=== PATIENT | male | born 1970 | race Caucasian/White ===

== ENCOUNTER → 2016-09-03 | Outpatient (CLI) | payer BC ==
[~2016-09-03] MED LIST: DOXY100C2 PO; HYDR-3812 PO; PARO-49 PO
== END ==
LOC: LABNPT 15:22 → EDBD 15:22
PROVIDERS: ATTEND Otolaryngology Otolaryngology/Facial Plastic Surgery
DX: R22.1 Localized swelling, mass and lump, neck (principal)
CPT/HCPCS: 87070; 87205; 88305; 88312

== ENCOUNTER 2016-09-21 12:03 | Outpatient (CLI) | payer BC ==
[~2016-09-21] VITALS: Ht 180.3 cm; Wt 114.9 kg
[2016-09-21] MEDS ORDERED: PARO-49 PO (12:13)
[2016-09-21 12:17] VITALS: BP 137/93
[2016-09-21 12:57] LABS: BASOPHILS # (AUTO) 0.1 10^3/uL (0.0-0.1); BASOPHILS % (AUTO) 1 % (0-10); EOSINOPHILS # (AUTO) 0.1 10^3/uL (0.0-0.3); EOSINOPHILS % (AUTO) 3 % (0-10); LYMPHOCYTES % (AUTO) 39 % (12-44); MEAN CORPUSCULAR HEMOGLOBIN 29 PG (25-34); MEAN CORPUSCULAR HGB CONC 33 G/DL (32-36); MEAN CORPUSCULAR VOLUME 86 FL (80-99); MEAN PLATELET VOLUME 11.4 FL (7.4-10.4); MONOCYTES # (AUTO) 0.6 X 10^3 (0.0-1.0); MONOCYTES % (AUTO) 12 % (0-12); NEUTROPHILS # (AUTO) 2.2 X 10^3 (1.8-7.8); NEUTROPHILS % (AUTO) 45 % (42-75); PLATELET COUNT 251 10^3/uL (130-400); RED BLOOD COUNT 5.24 10^6/uL (4.35-5.85); RED CELL DISTRIBUTION WIDTH 13.5 % (10.0-14.5)
[2016-09-21 13:15] LABS: ANION GAP 7 MMOL/L (5-14); BLOOD UREA NITROGEN 16 MG/DL (7-18); BUN/CREATININE RATIO 15; CARBON DIOXIDE 27 MMOL/L (21-32); CHLORIDE 105 MMOL/L (98-107); CREATININE SERUM 1.07 MG/DL (0.60-1.30); GFR ESTIMATED > 60; GLUCOSE 87 MG/DL (70-105); POTASSIUM 4.5 MMOL/L (3.6-5.0); SODIUM 139 MMOL/L (135-145)
[2016-09-22] MEDS ORDERED: DOXY100C2 PO (10:32)
[2016-09-22] MEDS ORDERED: HYDR-3812 PO (10:32)
== END 2016-09-21 14:03 | disposition home or self-care (01) ==
LOC: PREOP 12:03
PROVIDERS: ATTEND Otolaryngology Otolaryngology/Facial Plastic Surgery
DX: Z01.810 Encounter for preprocedural cardiovascular examination (principal); Z01.812 Encounter for preprocedural laboratory examination; Z11.2 Encounter for screening for other bacterial diseases; R22.1 Localized swelling, mass and lump, neck
CPT/HCPCS: 36415; 80048; 85025; 87081; 93005

== ENCOUNTER 2016-09-22 07:05 | Day surgery (SDC) | payer BC ==
[~2016-09-22] VITALS: Ht 180.3 cm; Wt 114.9 kg
[~2016-09-22 07:05] MED LIST changes: -DOXY100C2 PO; -HYDR-3812 PO
[2016-09-22] MEDS: LACTATED RINGERS 1,000 ML IV PRN ×2 (07:20→09:15)
[2016-09-22 07:51] VITALS: BP 147/93
[2016-09-22] MEDS ORDERED: LIDOCAINE/EPI 1%-1:100,000 (XYLOCAINE) 20ML ONE (08:03)
[2016-09-22] MEDS ORDERED: MUPIROCIN 2% OINT 22 GM (BACTROBAN) TUBE ONE (08:04)
[2016-09-22] MEDS ORDERED: SEVOFLURANE (ULTANE) 15 ML INHAL SOLN ONE ×4 (08:17→09:16)
[2016-09-22] MEDS ORDERED: fentaNYL INJECTION 100 MCG/2 ML AMP ONE (08:17)
[2016-09-22] MEDS ORDERED: ATRACURIUM 50 MG/5 ML (TRACRIUM) IV ONE (08:17)
[2016-09-22] MEDS ORDERED: LIDOCAINE PF 2% 10 ML (XYLOCAINE) AMP ONE (08:17)
[2016-09-22] MEDS ORDERED: proPOfol 200 MG/20 ML (DIPRIVAN) VIAL IV ONE (08:17)
[2016-09-22] MEDS ORDERED: DEXAMETHASONE PF 10 MG/ML (DECADRON) VIAL ONE (08:17)
[2016-09-22] MEDS ORDERED: LACTATED RINGERS 1,000 ML IV ONE ×2 (08:17→09:16)
[2016-09-22] MEDS ORDERED: HURRICAINE EXT TUBE (BENZOCAINE) ONE (08:17)
[2016-09-22] MEDS ORDERED: MIDAZOLAM 2 MG/2 ML (VERSED) VIAL ONE (08:17)
--- NOTE | 2016-09-22 08:21 | Progress Note-Pre Operative ---
Pre-Operative Progress Note H&P Reviewed The H&P was reviewed, patient examined and no changes noted. Date H&P Reviewed: Sep 22, 2016 Time H&P Reviewed: 08:00 Pre-Operative Diagnosis: Low Midline neck mass NIA JHA MD Sep 22, 2016 8:21 am
[2016-09-22] MEDS ORDERED: CLINDAMYCIN 900 MG/50 ML IVPB 50 ML IV ONE (09:19)
--- NOTE | 2016-09-22 09:25 | Progress Note-Post Operative ---
Post-Operative Progess Note Pre-Operative Diagnosis Low Midline neck mass Post-Operative Diagnosis same-path pending Post-Op Procedure Note Date of Procedure: Sep 22, 2016 Name of Procedure: Excison of Low Midline Neck Mass Anesthesia Type get Estimated blood loss (mL): minimal Specimen(s) collected midlien neck xuji-bkqjcy-qnnpqion abscess aerobic andanaerobic cultures sent to lab NIA JHA MD Sep 22, 2016 9:25 am
[2016-09-22] MEDS ORDERED: ACETAMINOPHEN 325 MG TABLET/CAPLET (TYLENOL) PO PRN (09:30)
[2016-09-22] MEDS ORDERED: HYDROcodone/APAP 5 MG/325 MG (LORTAB) TAB PO PRN (09:30)
[2016-09-22] MEDS ORDERED: ONDANSETRON 4 MG/2 ML (SDV) Z0FRAN IV PRN (09:45)
[2016-09-22] MEDS: morphine INJ 10 MG/ML 1ML (SYR OR VIAL) IV PRN ×2 (09:45→09:49)
[2016-09-22] MEDS ORDERED: PROMETHAZINE INJ 25 MG/ML (PHENERGAN) AMP IV PRN (09:45)
[2016-09-22] MEDS ORDERED: fentaNYL INJECTION 100 MCG/2 ML AMP IV PRN (09:45)
[2016-09-22] MEDS ORDERED: MEPERIDINE (DEMEROL) INJ 50 MG/ML ONE (09:52)
--- NOTE | 2016-09-22 09:55 | Anesthesia-General Post-Op ---
General Patient Condition Mental Status/LOC: Same as Preop Cardiovascular: Satisfactory Nausea/Vomiting: Absent Respiratory: Satisfactory Pain: Controlled Complications: Absent Post Op Complications Complications None Follow Up Care/Instructions Patient Instructions None needed. Anesthesia/Patient Condition Patient Condition Patient is doing well, no complaints, stable vital signs, no apparent adverse anesthesia problems. No complications reported per nursing. D/C home per [facility] Criteria: OLE Rai DO Sep 22, 2016 09:55
[2016-09-22] MEDS: MEPERIDINE (DEMEROL) INJ 50 MG/ML IV PRN ×2 (09:56→09:58)
[2016-09-22 10:25] VITALS: BP 133/82
[2016-09-22] MEDS ORDERED: DOXY100C2 PO (10:32)
[2016-09-22] MEDS ORDERED: HYDR-3812 PO (10:32)
[2016-09-22 11:00] VITALS: BP 134/81
[2016-09-22 11:20] VITALS: BP_SYST 133; BP_SYST 134; BP_DIAS 81; BP_DIAS 82
--- OUTSIDE RECORDS SUMMARY | 2016-09-25 08:28 | XMS REPORT | Continuity of Care Document ---
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 Visit Date/Time Discharge Status Pt. Type Provider Facility Loc./Unit Complaint [id number] 09/24/2014 09:02:00 09/24/2014 23: 59:59 CLS Outpatient NOBLE WHITE APRN
== END 2016-09-22 11:20 | disposition home or self-care (01) ==
LOC: DELPENDDIS → SDC 07:05
PROVIDERS: ATTEND Otolaryngology Otolaryngology/Facial Plastic Surgery
DX: L92.1 Necrobiosis lipoidica, not elsewhere classified (principal)
CPT/HCPCS: 87070; 87075; 87205; 88307; 88312; 88331; 88342

== ENCOUNTER 2022-07-12 16:52 | Emergency (ER) | payer BC ==
--- NOTE | 2022-07-12 17:05 | ED Chest Pain ---
General Chief Complaint: Chest Pain Stated Complaint: CHEST PAIN Nursing Triage Note: PT AMB TO RM 3 WITH WITH C/O CP SINCE LAST NIGHT THAT FEELS TIGHT AND PT ALSO STATES HE HAS HEART BURN. PT SEEN AT PCP AND REC'D EKG AND BLOOD WORK TODAY Source: patient, family Exam Limitations: no limitations (ANN MARIE GONGORA APRN) History of Present Illness Date Seen by Provider: Jul 12, 2022 Time Seen by Provider: 17:00 Initial Comments Patient is a 51-year-old male who presents to the emergency department for evaluation of chest pain that has been present since last night. Patient states he has some very mild chest tightness and feels like he may have some heartburn. Patient was seen at PCP earlier today where an EKG and blood work was obtained. Patient presents to the ER for further evaluation as his symptoms have not resolved. Patient denies any shortness of breath. There is no worsening of the symptoms with exertion. Patient denies any diaphoresis or lower extremity edema. Patient denies any history of significant heart or lung issues in the past. (ANN MARIE GONGORA APRN) Allergies and Home Medications Allergies Coded Allergies: No Known Drug Allergies (Unverified , 09/21/16) Patient Home Medication List Home Medication List Reviewed: Yes (ANN MARIE GONGORA APRN) Doxycycline Hyclate (Doxycycline Hyclate) 100 Mg Capsule, 100 MG PO BID Prescribed by: MARVIN KHALIL on 09/22/16 1032 Hydrocodone Bit/Acetaminophen (Lortab 5 Mg Tablet) 1 Each Tablet, 1-2 TAB PO Q4H PRN for PAIN Prescribed by: MARVIN KHALIL on 09/22/16 1032 Paroxetine HCl (Paxil) 20 Mg Tablet, 20 MG PO DAILY, (Reported) Entered as Reported by: LESLYE BAER on 09/21/16 1213 Review of Systems Review of Systems Constitutional: no symptoms reported EENTM: No Symptoms Reported Respiratory: No Symptoms Reported Cardiovascular: See HPI, Chest Pain Gastrointestinal: No Symptoms Reported Genitourinary: No Symptoms Reported Musculoskeletal: no symptoms reported Skin: no symptoms reported Psychiatric/Neurological: No Symptoms Reported Endocrine: No Symptoms Reported Hematologic/Lymphatic: No Symptoms Reported (ANN MARIE GONGORA APRN) Past Oohdvmb-Bdabuq-Nhkhjv Hx Seasonal Allergies Seasonal Allergies: Yes (ANN MARIE GONGORA APRN) Past Medical History Reproductive Disorders: No Sexually Transmitted Disease: No HIV/AIDS: No Gastroesophageal Reflux Loss of Vision: Right Hearing Impairment: Denies Anxiety Adverse Reaction/Blood Tranf: No (N/A) (ANN MARIE GONGORA APRN) Physical Exam Vital Signs Vital Signs - First Documented 07/12/22 07/12/22 16:59 19:12 Temp 36.5 Pulse 69 Resp 14 B/P (MAP) 132/82 (99) Pulse Ox 99 O2 Delivery Room Air (MARY ANN NIETO DO) Vital Signs Capillary Refill : (ANN MARIE GONGORA APRN) Height, Weight, BMI Height: 5'11.00" Weight: 253lbs. 6.0oz. 114.642355wd; BMI Method: General Appearance: No Apparent Distress, WD/WN HEENT: PERRL/EOMI, TMs Normal, Normal ENT Inspection, Pharynx Normal Neck: Full Range of Motion, Normal Inspection, Non Tender, Supple Respiratory: Chest Non Tender, Lungs Clear, Normal Breath Sounds, No Accessory Muscle Use, No Respiratory Distress Cardiovascular: Regular Rate, Rhythm Gastrointestinal: Non Tender, Soft Neurologic/Psychiatric: Alert, Oriented x3, No Motor/Sensory Deficits, Normal Mood/Affect Skin: Normal Color, Warm/Dry (ANN MARIE GONGORA APRN) Progress/Results/Core Measures Results/Orders Lab Results Laboratory Tests Test 07/12/22 17:05 Range/Units Prothrombin Time 13.3 12.2-14.7 SEC INR Comment 1.0 0.8-1.4 Activated Partial Thromboplast Time 30 24-35 SEC Magnesium Level 2.3 1.6-2.4 MG/DL Myoglobin 66.5 10.0-92.0 NG/ML Troponin I < 0.028 <0.028 NG/ML (GERSON,MARY ANN K DO) My Orders Orders - GERSONMARY ANN K DO Ekg Tracing (07/12/22 16:58) (MARY ANN NIETO K DO) Vital Signs/I&O 07/12/22 07/12/22 16:59 19:12 Temp 36.5 Pulse 69 70 Resp 14 16 B/P (MAP) 132/82 (99) 135/72 Pulse Ox 99 O2 Delivery Room Air (GERSONMARY ANN K DO) Blood Pressure Mean: 99 Progress Progress Note : Progress Note Patient is nontoxic and well-hydrated on exam. No adventitious lung sounds or increased work of breathing noted. Abdominal exam is reassuring. Vital signs are reassuring without tachycardia, hypotension, or hypoxia. Patient states the pain is in his left chest and is tight in nature. He rates the pain at 1 out of 10 at this time. Chest pain work-up ordered including magnesium, coagulation studies, EKG, and troponin. I reviewed the laboratory studies obtained earlier today. The CBC and CMP from earlier are unremarkable. The D-dimer was not elevated. The chest x-ray from earlier today was acutely negative. The labs obtained today are all reassuring. Troponin is not elevated. EKG without acute ischemic change or arrhythmia. No need for repeat troponin as symptoms been present since last night. Feel like ACS is unlikely etiology of the patient's symptoms. Discussed supportive care and anticipatory guidance. Follow-up with PCP closely. Return precautions for urgent symptomology discussed. Patient and verbalized understanding. (ANN MARIE GONGORA APRN) EKG : EKG Time: 17:04 Rate: 74 Rhythm: Normal Sinus Intervals: Normal ECG Comparisson: No Previous ECG Available ECG Impression: Normal (ANN MARIE GONGORA APRN) Departure Impression Primary Impression: Atypical chest pain Disposition: 01 HOME, SELF-CARE Condition: Stable Departure-Patient Inst. Decision time for Depature: 18:40 (ANN MARIE GONGORA APRN) Referrals: JENELLE AYALA APRN (PCP/Family) Primary Care Physician Patient Instructions: Chest Pain, Adult ED Add. Discharge Instructions: Follow-up closely with your regular physician for further evaluation and treatment. If there is any worsening of your symptoms please return to the ER for further evaluation. All discharge instructions reviewed with patient and/or family. Voiced understanding. ATTENDING PHYSICIAN NOTE: I WAS PHYSICALLY PRESENT ER PHYSICIAN, BUT I WAS NOT INVOLVED IN ANY DECISION MAKING OR ANY CARE OF THIS PATIENT, AND I AM NOT COLLABORATING PHYSICIAN. (MARY ANN NIETO DO) ANN MARIE GONGORA APRN Jul 12, 2022 17:05 MARY ANN NIETO DO Jul 15, 2022 03:55
[2022-07-12] MEDS ORDERED: ASPIRIN 81 MG CHEW (CHILDREN'S ASA) PO ONE (17:15)
--- NOTE | 2022-07-12 17:19 | Diagnostic Imaging Report ---
INDICATION: Chest pain. TIME OF EXAM: 5:01 p.m. No prior studies are available for comparison. FINDINGS: The heart size is normal. The pulmonary vascularity is unremarkable. The lungs are clear. No infiltrate, effusion or pneumothorax is detected. IMPRESSION: No acute cardiopulmonary process is detected. Dictated by: Dictated on workstation # [id number]
[2022-07-12 17:33] LABS: PROTHROMBIN TIME PATIENT 13.3 SEC (12.2-14.7)
[2022-07-12 17:37] LABS: MAGNESIUM 2.3 MG/DL (1.6-2.4)
[2022-07-12 19:12] VITALS: BP 135/72
== END 2022-07-12 19:14 | disposition home or self-care (01) ==
LOC: EDUNIT# 16:52 → ER 16:54
DX: R07.89 Other chest pain (principal)
CPT/HCPCS: 36415; 71045; 83735; 83874; 84484; 85610; 85730; 93005; 93041

== ENCOUNTER → 2022-07-12 | Outpatient (CLI) | payer BC ==
[~2022-07-12] MED LIST changes: +ACHD5005 PO; +DOXY100C5 PO
[2022-07-12 14:39] LABS: HEMATOCRIT 45 % (40-54); HEMOGLOBIN 15.3 g/dL (13.3-17.7); MEAN CORPUSCULAR HEMOGLOBIN 29 pg (25-34); MEAN CORPUSCULAR HGB CONC 34 g/dL (32-36); MEAN CORPUSCULAR VOLUME 87 fL (80-99); MEAN PLATELET VOLUME 10.4 fL (9.0-12.2); PLATELET COUNT 281 10^3/uL (130-400); WHITE BLOOD COUNT 6.2 10^3/uL (4.3-11.0)
[2022-07-12 15:00] LABS: ALANINE AMINOTRANSFERASE 24 U/L (0-55); ALBUMIN 4.8 GM/DL (3.2-4.5); ALKALINE PHOSPHATASE 50 U/L (40-136); BILIRUBIN,TOTAL 1.8 MG/DL (0.1-1.0); BUN/CREATININE RATIO 11; CALCIUM 9.4 MG/DL (8.5-10.1); CARBON DIOXIDE 28 MMOL/L (21-32); CHLORIDE 103 MMOL/L (98-107); CREATININE SERUM 1.11 MG/DL (0.60-1.30); GFR ESTIMATED 80; GLUCOSE 92 MG/DL (70-105); SODIUM 138 MMOL/L (135-145); TOTAL PROTEIN 7.6 GM/DL (6.4-8.2)
[2022-07-12 15:07] LABS: CREATINE KINASE MB 1.9 NG/ML (<6.6)
== END ==
LOC: LAB 14:02
PROVIDERS: ATTEND Nurse Practitioner Family
DX: I10 Essential (primary) hypertension (principal); R07.89 Other chest pain
CPT/HCPCS: 36415; 80053; 82553; 84484; 85027; 85379; 86141

== ENCOUNTER → 2022-07-19 | Outpatient (CLI) | payer BC ==
[~2022-07-19] MED LIST changes: +PARO-124 PO; -PARO-49 PO
== END ==
LOC: CARD 10:38
PROVIDERS: ATTEND Internal Medicine Cardiovascular Disease
DX: I25.10 Atherosclerotic heart disease of native coronary artery without angina pectoris (principal); I10 Essential (primary) hypertension
CPT/HCPCS: 93306

== ENCOUNTER → 2022-07-20 | Outpatient (CLI) | payer BC ==
[~2022-07-20] MED LIST changes: +CATHETER FLUSH 10 ML SYR IVP PRN
[2022-07-20 09:13] VITALS: BP 126/78
--- NOTE | 2022-07-20 13:54 | Cardiology Stress Test Report ---
Stress Test Report Date of Procedure/Referring: Date of Procedure: Jul 20, 2022 [facility] Admitting Physician Admitting Physician: Attending Physician: Connie Sue MD Indications: HTN Baseline Heart Rate: 55 Baseline Blood Pressure: Blood Pressure Systolic: 126 Blood Pressure Diastolic: 78 Vital Signs Date Time Temp Pulse Resp B/P (MAP) Pulse Ox O2 Delivery O2 Flow Rate FiO2 07/20/22 09:13 59 126/78 (94) Baseline Vital Signs Vital Signs Date Time Temp Pulse Resp B/P (MAP) Pulse Ox O2 Delivery O2 Flow Rate FiO2 07/20/22 09:13 59 126/78 (94) Baseline EKG: Baseline EKG: NSR Summary: After explaining the procedure and details to the patient, he signed the consent and was brought to the stress nuclear laboratory. Patient exercised on standard Clemente protocol, EKG, heart rate and blood pressure were monitored continuously, resting and stress doses of radio tracer were injected, imaging was acquired and reviewed in the short axis, horizontal long axis and vertical long axis views Patient was able to exercise for a total of 11 minutes on Clemente protocol, METs 12.1 Maximum heart rate 152 Maximum blood pressure 140/72 Stress EKG, Minimal nondiagnostic changes Recovery EKG, Return to baseline TID: 1 SSS: 1 SDS: 1 EF: 55 Conclusion: 1. Excellent exercise tolerance for a total of 11 minutes on standard Clemente protocol, 12.1 METS achieving 90% of maximum expected heart rate 2. Appropriate heart rate and blood pressure response to exercise return to baseline during recovery 3. Minimal nondiagnostic EKG changes with exercise return to baseline during recovery 4. No significant ischemia or infarction noted on SPECT images 5. Normal left ventricular size, ejection fraction 55% Copy Copies To 1: [facility]/ CONNIE SUE MD Jul 20, 2022 13:54
== END ==
LOC: CARD 07:03
PROVIDERS: ATTEND Internal Medicine Cardiovascular Disease
DX: I10 Essential (primary) hypertension (principal); I25.10 Atherosclerotic heart disease of native coronary artery without angina pectoris
CPT/HCPCS: 78452; 93017; A9502